=== PATIENT | male | born 1995 | race Caucasian/White ===

== ENCOUNTER 2018-08-19 14:23 | Emergency (ER) | payer OTHER, MEDICAID, SELFPAY ==
[2018-08-19 14:42] VITALS: BP 145/93; PULSE 78; RESP 16; TEMP 36.7; O2SAT 99
--- NOTE | 2018-08-19 18:42 | DI.CT.S_ITS ---
PROCEDURE: CT HEAD/BRAIN WO CON INDICATIONS: headache with syncope TECHNIQUE: Noncontrast 4.5 mm thick angled axial sections acquired from the foramen magnum to the vertex, with coronal and sagittal reformats. For radiation dose reduction, the following was used: automated exposure control, adjustment of mA and/or kV according to patient size. COMPARISON: None. FINDINGS: Image quality: Excellent. CSF spaces: Basal cisterns are patent. No extra-axial fluid collections. Ventricles are normal in size and shape. Brain: No midline shift. No intracranial masses or hemorrhage. Montero-white matter interface is normal. Skull and face: Calvarium and visualized facial bones are intact, without suspicious lesions. Sinuses: Visualized sinuses and mastoids are clear. IMPRESSION: 1. No acute intracranial process. Dictated by: Delfina Tracey M.D. on 08/19/2018 at 18:09 Approved by: Delfina Tracey M.D. on 08/19/2018 at 18:10
[2018-08-19 19:02] LABS: Add Manual Diff / Slide Review NO; Basophils Absolute Auto 0 /uL (0-100); Basophils Percent Auto 0.4 % (0-2); Eosinophils Absolute Auto 0 /uL (0-450); Eosinophils Percent Auto 0.6 % (2-4); Hematocrit 47.9 % (41-53); Hemoglobin 16.1 g/dL (13.5-17.5); Lymphocytes Absolute Auto 2300 /uL (1100-4500); Lymphocytes Percent Auto 32.3 % (25-40); Mean Corpuscular HGB Conc 33.6 % (30-36); Mean Corpuscular Hemoglobin 30.1 PG (26-34); Mean Corpuscular Volume 89.7 fL (80-100); Monocytes Absolute Auto 600 /uL (0-900); Monocytes Percent Auto 7.7 % (3-14); Neutrophils Absolute Auto 4300 /uL (1500-7000); Platelet Count 294 X10^3/uL (150-400); Red Blood Cell Count 5.33 X10^6/uL (4.5-5.9); Red Cell Distribution Width 13.1 % (11.6-14.8); White Blood Cell Count 7.2 X10^3/uL (4.5-11.0)
[2018-08-19 19:10] LABS: INR 1.1 (0.9-1.3); Prothrombin Time 12.5 SECONDS (10.1-12.7)
[2018-08-19 19:17] LABS: Alanine Aminotransferase 25 IU/L (21-72); Albumin 4.5 g/dL (3.5-5.0); Albumin Globulin Ratio 1.4 (1.0-2.8); Alkaline Phosphatase 46 U/L (38-126); Aspartate Aminotransferase 17 IU/L (17-59); BUN Creatinine Ratio 21.4 (6-22); Bilirubin Total 0.4 mg/dL (0.2-1.3); Blood Urea Nitrogen 15 mg/dL (9-20); Calcium 9.3 mg/dL (8.4-10.2); Carbon Dioxide 25 mmol/L (22-32); Chloride 103 mmol/L (98-107); Creatine Kinase 29 U/L (55-170); Estimated Glomerular Filt Rate > 60.0 mL/min (>60); Globulin 3.3 g/dL (1.7-4.1); Glucose 89 mg/dL (70-100); HEMOLYSIS 25 (0-50); Potassium 4.1 mmol/L (3.4-5.1); Sodium 140 mmol/L (137-145); Total Protein 7.8 g/dL (6.3-8.2)
[2018-08-19 19:27] LABS: Troponin I < 0.012 ng/mL (0.01-0.034)
[2018-08-19 20:12] VITALS: BP 132/79; PULSE 62; RESP 16; O2SAT 99
[2018-08-19] MEDS: SODIUM CHLORIDE 0.9% 1,000 ML 1000 ML IV (20:27)
--- NOTE | 2018-08-19 21:05 | ED_ITS ---
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 Last syncope yesterday. Patient denies any correlation with pain severity, headache presentation, connection to syncope regarding headaches. He denies any chest pain, shortness of breath. Denies any thunderclap sensation. He denies any confusion. He states he passes out for few seconds at a time. He states is happened 2-3 times over the past 3 months. He states he does have history of mitochondrial disease as well as diabetes and needs to follow up with primary care provider. He has an appointment with his primary care provider next week. He denies current dizziness the emergency department. he denies any palpitations. He denies any swelling of his extremities. Related Data Allergies Allergy/AdvReac Type Severity Reaction Status Date / Time meperidine [From DEMEROL] Allergy Unknown Unverified 09/10/17 12:36 Review of Systems <ANNY Hicks - Last Filed: 08/19/18 22:47> Review of Systems GENERAL: see HPI HEENT: Denies sinus pain, ear pain, sore throat, difficulty swallowing, dizzine ss. RESPIRATORY: Denies dyspnea, cough, wheezing, hemoptysis, sputum. CARDIOVASCULAR: see HPI GASTROINTESTINAL: Denies nausea, vomiting, abdominal pain, diarrhea, constipation, melena. : Denies dysuria, frequency, incontinence, hematuria, urinary retention. MUSCULOSKELETAL: denies weakness, joint pain, or bony pain SKIN: Denies rash, skin lesions, or other NEUROLOGIC: see HPI PSYCHIATRIC: No concerning psychosocial issues. 12 point review of systems is negative except for those stated above PFSH <CAROLA Hicks - Last Filed: 08/19/18 22:47> Social History Smoking Status: Current every day smoker Social History Smoking Status: Current every day smoker Exam <CAROLA Hicks - Last Filed: 08/19/18 22:47> Narrative Exam Narrative: GENERAL: This is a well-nourished, well-developed patient, In no apparent distress HEAD: Atraumatic. Normocephalic. No temporal or scalp tenderness. EYES: Pupils equal round and reactive. Extraocular motions intact. No scleral icterus. No injection or drainage. No nystagmus noted. ENT: Nose without bleeding, purulent drainage or septal hematoma. Throat without erythema, tonsillar hypertrophy or exudate. Uvula midline. Airway patent. NECK: Trachea midline. No JVD or lymphadenopathy. Supple, nontender, no meningeal signs. CARDIOVASCULAR: Regular rate and rhythm without murmurs, gallops, or rubs. RESPIRATORY: Clear to auscultation. Breath sounds equal bilaterally. No wheezes, rales, or rhonchi. no cough. No increased respiratory effort. GASTROINTESTINAL: Abdomen soft, non-tender, nondistended. No hepato- splenomegaly, or palpable masses. No guarding. EXTREMITIES: No clubbing, cyanosis, or edema. No joint tenderness, effusion, or edema noted. BACK: Nontender without deformity or crepitance. No flank tenderness. NEURO: AOx3. No cranial nerve deficit noted. Strength equal upper and lower extremities bilaterally. Radialis patellar reflexes intact bilaterally. Finger-nose test is intact. She inhaled test normal. SKIN: No rash or erythema. Initial Vital Signs Initial Vital Signs: Vital Signs Temperature 98.1 F 08/19/18 14:42 Pulse Rate 78 08/19/18 14:42 Respiratory Rate 16 08/19/18 14:42 Blood Pressure 145/93 H 08/19/18 14:42 Pulse Oximetry 99 08/19/18 14:42 <Medhat Geiger DO - Last Filed: 08/20/18 01:31> Initial Vital Signs Initial Vital Signs: Vital Signs Temperature 98.1 F 08/19/18 14:42 Pulse Rate 78 08/19/18 14:42 Respiratory Rate 16 08/19/18 14:42 Blood Pressure 145/93 H 08/19/18 14:42 Pulse Oximetry 99 08/19/18 14:42 Course <MAURICIO Hicks-BC - Last Filed: 08/19/18 22:47> Orders Ordered: ED Orders 08/19/18 18:41 EKG-12 Lead Stat 08/19/18 18:42 CT head/brain wo con Stat 08/19/18 18:56 Complete Blood Count AUTO DIFF Stat Comprehensive Metabolic Panel Stat Magnesium Stat Prothrombin Time INR Stat Troponin & CK Cardiac Panel Stat Discontinued Medications Sodium Chloride (Normal Saline 0.9%) 1,000 mls @ 1,000 mls/hr IV BOLUS ONE Stop: 08/19/18 19:40 Last Infusion: 08/19/18 21:30 Dose: 0 mls/hr Admin: 08/19/18 20:27 Dose: 1,000 mls/hr Sodium Chloride (Normal Saline 0.9%) 1,000 mls @ 1,000 mls/hr IV BOLUS ONE Stop: 08/19/18 21:14 Ketorolac Tromethamine (Toradol) 30 mg IV NOW ONE Stop: 08/19/18 20:16 Last Admin: 08/19/18 21:03 Dose: Not Given Vital Signs - 8 hr 08/19/18 20:12 08/19/18 21:45 Pulse Rate 62 59 L Respiratory Rate 16 14 Blood Pressure 129/74 Blood Pressure [Left Arm] 132/79 Pulse Oximetry 99 97 <Medhat Geiger DO - Last Filed: 08/20/18 01:31> Orders Ordered: ED Orders 08/19/18 18:41 EKG-12 Lead Stat 08/19/18 18:42 CT head/brain wo con Stat 08/19/18 18:56 Complete Blood Count AUTO DIFF Stat Comprehensive Metabolic Panel Stat Magnesium Stat Prothrombin Time INR Stat Troponin & CK Cardiac Panel Stat Discontinued Medications Sodium Chloride (Normal Saline 0.9%) 1,000 mls @ 1,000 mls/hr IV BOLUS ONE Stop: 08/19/18 19:40 Last Infusion: 08/19/18 21:30 Dose: 0 mls/hr Admin: 08/19/18 20:27 Dose: 1,000 mls/hr Sodium Chloride (Normal Saline 0.9%) 1,000 mls @ 1,000 mls/hr IV BOLUS ONE Stop: 08/19/18 21:14 Ketorolac Tromethamine (Toradol) 30 mg IV NOW ONE Stop: 08/19/18 20:16 Last Admin: 08/19/18 21:03 Dose: Not Given Vital Signs - 8 hr 08/19/18 20:12 08/19/18 21:45 Pulse Rate 62 59 L Respiratory Rate 16 14 Blood Pressure 129/74 Blood Pressure [Left Arm] 132/79 Pulse Oximetry 99 97 MDM - Headache <Jamilah NuñezRICKP- - Last Filed: 08/19/18 22:47> Lab Data Result diagrams: 08/19/18 18:56 08/19/18 18:56 Lab Results 08/19/18 08/19/18 08/19/18 Range/Units 18:56 18:56 18:56 WBC 7.2 (4.5-11.0) X10^3/uL RBC 5.33 (4.5-5.9) X10^6/uL Hgb 16.1 (13.5-17.5) g/dL Hct 47.9 (41-53) % MCV 89.7 (80-100) fL MCH 30.1 (26-34) PG MCHC 33.6 (30-36) % RDW 13.1 (11.6-14.8) % Plt Count 294 (150-400) X10^3/uL Neut % (Auto) 59.0 (50-75) % Lymph % (Auto) 32.3 (25-40) % Citrus % (Auto) 7.7 (3-14) % Eos % (Auto) 0.6 L (2-4) % Baso % (Auto) 0.4 (0-2) % Neut # (Auto) 4300 (7388-7534) /uL Lymph # (Auto) 2300 (0279-9139) /uL Citrus # (Auto) 600 (0-900) /uL Eos # (Auto) 0 (0-450) /uL Baso # (Auto) 0 (0-100) /uL PT 12.5 (10.1-12.7) SECONDS INR 1.1 (0.9-1.3) Sodium 140 (137-145) mmol/L Potassium 4.1 (3.4-5.1) mmol/L Chloride 103 (98-107) mmol/L Carbon Dioxide 25 (22-32) mmol/L BUN 15 (9-20) mg/dL Creatinine 0.70 (0.66-1.25) mg/dL Estimated GFR > 60.0 (>60) mL/min BUN/Creatinine Ratio 21.4 (6-22) Glucose 89 (70-100) mg/dL Calcium 9.3 (8.4-10.2) mg/dL Magnesium 2.0 (1.6-2.3) mg/dL Total Bilirubin 0.4 (0.2-1.3) mg/dL AST 17 (17-59) IU/L ALT 25 (21-72) IU/L Alkaline Phosphatase 46 (38-126) U/L Total Creatine Kinase 29 L (55-170) U/L CK-MB (CK-2) TNP CK-MB (CK-2) Rel Index TNP Troponin I < 0.012 (0.01-0.034) ng/mL Total Protein 7.8 (6.3-8.2) g/dL Albumin 4.5 (3.5-5.0) g/dL Globulin 3.3 (1.7-4.1) g/dL Albumin/Globulin Ratio 1.4 (1.0-2.8) Point of Care Testing Glucose POC [address] scan - head: Radiologist's impression: [place] [address] CT Scan Report Signed Patient: Ebenezer Rodríguez [facility]#: [id number] : 1995Acct:[id number] Age/Sex: MDate of Service: 08/19/18 Loc: ED Accession Number: [id number] Procedure: CT head/brain wo con Ordering Provider: Jamilah Nuñez [facility] PROCEDURE: CT HEAD/BRAIN WO CON INDICATIONS: headache with syncope TECHNIQUE: Noncontrast 4.5 mm thick angled axial sections acquired from the foramen magnum to the vertex, with coronal and sagittal reformats. For radiation dose reduction, the following was used: automated exposure control, adjustment of mA and/or kV according to patient size. COMPARISON: None. FINDINGS: Image quality: Excellent. CSF spaces: Basal cisterns are patent. No extra-axial fluid collections. Ventricles are normal in size and shape. Brain: No midline shift. No intracranial masses or hemorrhage. Montero-white matter interface is normal. Skull and face: Calvarium and visualized facial bones are intact, without suspicious lesions. Sinuses: Visualized sinuses and mastoids are clear. IMPRESSION: 1. No acute intracranial process. Dictated by: Delfina Tracey M.D. on 08/19/2018 at 18:09 Approved by: Delfina Tracey M.D. on 08/19/2018 at 18:10 ECG Data Attestation: I personally reviewed and interpreted this ECG as follows: Interpretation: Sinus bradycardia ventricular rate 57.MA 151. No ectopy. early repolarization noted. Also viewed by Dr Fely MONTOYA Narrative Medical decision making narrative: I had the patient is a 23-year-old male who presents with chief complaints of syncope and headache. He states occurrences of these complaints are not related. He had a normal head CT, normal CBC CMP a nd troponin. I offered to treat his headache with Toradol and headache cocktail, but he declined stating that his headache improved while he was in the emergency department. He has sinus bradycardia on the monitor throughout his stay in the ER. I offered to arrange additional evaluation regarding his syncope, but the patient stated he wanted to go home and follow up with primary care provider instead. I discussed the possibility of having an episode of syncope while driving, the the possibility of a cardiac abnormality or arrhythmia, the patient still declined admission or further workup. I stated that he needs to have his primary care provider as soon as possible and come back to the emergency department for any acute concerns including chest pain shortness of breath or recurrent syncope. <Medhat Geiger, DO - Last Filed: 08/20/18 01:31> Lab Data Lab Results 08/19/18 08/19/18 08/19/18 Range/Units 18:56 18:56 18:56 WBC 7.2 (4.5-11.0) X10^3/uL RBC 5.33 (4.5-5.9) X10^6/uL Hgb 16.1 (13.5-17.5) g/dL Hct 47.9 (41-53) % MCV 89.7 (80-100) fL MCH 30.1 (26-34) PG MCHC 33.6 (30-36) % RDW 13.1 (11.6-14.8) % Plt Count 294 (150-400) X10^3/uL Neut % (Auto) 59.0 (50-75) % Lymph % (Auto) 32.3 (25-40) % Citrus % (Auto) 7.7 (3-14) % Eos % (Auto) 0.6 L (2-4) % Baso % (Auto) 0.4 (0-2) % Neut # (Auto) 4300 (5947-9359) /uL Lymph # (Auto) 2300 (8084-3671) /uL Citrus # (Auto) 600 (0-900) /uL Eos # (Auto) 0 (0-450) /uL Baso # (Auto) 0 (0-100) /uL PT 12.5 (10.1-12.7) SECONDS INR 1.1 (0.9-1.3) Sodium 140 (137-145) mmol/L Potassium 4.1 (3.4-5.1) mmol/L Chloride 103 (98-107) mmol/L Carbon Dioxide 25 (22-32) mmol/L BUN 15 (9-20) mg/dL Creatinine 0.70 (0.66-1.25) mg/dL Estimated GFR > 60.0 (>60) mL/min BUN/Creatinine Ratio 21.4 (6-22) Glucose 89 (70-100) mg/dL Calcium 9.3 (8.4-10.2) mg/dL Magnesium 2.0 (1.6-2.3) mg/dL Total Bilirubin 0.4 (0.2-1.3) mg/dL AST 17 (17-59) IU/L ALT 25 (21-72) IU/L Alkaline Phosphatase 46 (38-126) U/L Total Creatine Kinase 29 L (55-170) U/L CK-MB (CK-2) TNP CK-MB (CK-2) Rel Index TNP Troponin I < 0.012 (0.01-0.034) ng/mL Total Protein 7.8 (6.3-8.2) g/dL Albumin 4.5 (3.5-5.0) g/dL Globulin 3.3 (1.7-4.1) g/dL Albumin/Globulin Ratio 1.4 (1.0-2.8) Point of Care Testing Glucose POC 69 Discharge Plan Departure Patient Disposition: Home Clinical Impression: History of syncope Headache Qualifiers: Headache type: unspecified Headache chronicity pattern: unspecified pattern Intractability: not intractable Qualified Code(s): R51 - Headache Discharge Date/Time: 08/19/18 21:23 Interventions: ED Discharge Assessment Last Done: 08/19/18 21:45 Instructions: DI for Syncope in Adults (Fainting), DI for Headache Activity Restrictions/Additional Instructions: * Please follow up with Dr. Bradley soon as possible. * We discussed the possibility of further testing, which she declined today. Please put fluids and rest. Please come back to the emergency department for any acute concerns. Referrals: Per Bradley MD [Primary Care Provider] - <Medhat Geiger DO - Last Filed: 08/20/18 01:31> Cosign ED Attending Emanuelature Attestation: I was available for consultation during this patient's emergency department encounter
[2018-08-19 21:45] VITALS: BP 129/74; PULSE 59; RESP 14; O2SAT 97
== END 2018-08-19 21:23 | disposition home or self-care (01) ==
PROVIDERS: Emergency Provider Nurse Practitioner Family; PCP Family Medicine
DX: R55 Syncope and collapse (principal); R51 Headache; R00.1 Bradycardia, unspecified
CPT/HCPCS: 36591; 70450; 80053; 82550; 82962; 83735; 84484; 85025; 85610; 93005; 96360; 99283; 99285